=== PATIENT | male | born 1975 | race Caucasian/White ===

== ENCOUNTER 2017-11-25 22:06 | Emergency (ER) | payer OTHER ==
[~2017-11-25] VITALS: Ht 185.4 cm; Wt 154.2 kg
[2017-11-25] MEDS ORDERED: NEURONTIN300 MG PO (22:12)
[2017-11-25] MEDS ORDERED: BACLOFEN10 MG PO (22:13)
[2017-11-25] MEDS ORDERED: DICYCLOMINE HCL10 MG PO (22:14)
[2017-11-25] MEDS ORDERED: PANTOPRAZOLE SO40 MG PO (22:14)
[2017-11-25] MEDS ORDERED: NORCO 5-325 TA1 EACH PO (22:49)
[2017-11-25] MEDS ORDERED: CEPHALEXIN500 MG PO (22:49)
== END 2017-11-25 23:04 | disposition home or self-care (01) ==
LOC: ED 22:06
PROC: 0HQLXZZ Repair Left Lower Leg Skin, External Approach (ICD-10-PCS; principal; 2017-11-25)
DX: S81.812A Laceration without foreign body, left lower leg, initial encounter (principal); K21.9 Gastro-esophageal reflux disease without esophagitis; F17.200 Nicotine dependence, unspecified, uncomplicated; Z88.8 Allergy status to other drugs, medicaments and biological substances; Z79.899 Other long term (current) drug therapy; W22.8XXA Striking against or struck by other objects, initial encounter
CPT/HCPCS: 12034; 90471; 90715; 99282